=== PATIENT | male | born 1965 | race African-American/Black ===

== ENCOUNTER 2017-11-29 11:58 | Inpatient (IN) ==
[2017-11-29] MEDS ORDERED: ASPIRIN 325 MG TABLET ONE (13:15)
[2017-11-29] MEDS ORDERED: ENOXAPARIN 100 MG/ML SYRINGE SUBCUT STA (13:20)
[2017-11-29] MEDS ORDERED: MORPHINE 4 MG/1 ML VIAL IV PRN (13:20)
[2017-11-29] MEDS ORDERED: ENOXAPARIN 100 MG/ML SYRINGE SUBCUT ONE (13:20)
[2017-11-29] MEDS ORDERED: ASPIRIN 325 MG TABLET PO STA (13:20)
[2017-11-29] MEDS ORDERED: ONDANSETRON 4 MG/2 ML VIAL IV PRN ×2 (13:20→13:40)
[2017-11-29] MEDS ORDERED: fentaNYL 100 MCG/2 ML VIAL ONE (13:26)
[2017-11-29] MEDS ORDERED: LIDOCAINE 1% 20 ML VIAL ONE (13:26)
[2017-11-29] MEDS ORDERED: MIDAZOLAM 2 MG/2 ML VIAL ONE (13:26)
[2017-11-29] MEDS ORDERED: BIVALIRUDIN 250 MG VIAL IV ONE ×2 (13:38→14:22)
[2017-11-29 13:40] LABS: Basophils % 0.2 % (0.0-0.8); Eosinophils % 0.1 % (0.00-10.9); Hemoglobin 13.4 GM/DL (14.0-18.0); Immature Granulocytes % 0.6 %; Immature Granulocytes Absolute 0.12 #; Lymphocytes # 2.3 10*3/uL (1.4-4.0); Lymphocytes % 11.2 % (21.2-54.2); Mean Corpuscular HGB Conc 33.5 GM/DL (32-36); Mean Corpuscular Hemoglobin 29 PG (27-34); Mean Corpuscular Volume 85.3 FL (87-102); Mean Platelet Volume 11.1 FL (9.6-12.0); Monocytes % 5.2 % (1.7-12.7); Neutrophils # 16.6 10*3/uL (1.4-7.4); Neutrophils % 82.7 % (38.7-73.9); Platelet Count 225 T/CUMM (130-400); Red Blood Count 4.69 MC/CUMM (3.8-5.5); Red Cell Distribution Width 14.9 % (9.3-17.3); White Blood Count 20.1 T/CUMM (4-12)
[2017-11-29] MEDS ORDERED: BISACODYL 5 MG TABLET PO PRN (13:40)
[2017-11-29] MEDS ORDERED: MAGNESIUM SULF RIDER 4 GM in PREMIX 1 EACH IV PRN (13:40)
[2017-11-29] MEDS ORDERED: ZALEPLON 5 MG CAPSULE PO PRN (13:40)
[2017-11-29] MEDS ORDERED: ACETAMINOPHEN 325 MG TABLET PO PRN (13:40)
[2017-11-29] MEDS ORDERED: DOCUSATE SODIUM 100 MG CAPSULE PO PRN (13:40)
[2017-11-29] MEDS ORDERED: guaiFENesin/DM ER 600-30 MG TABLET PO PRN (13:40)
[2017-11-29] MEDS ORDERED: diphenhydrAMINE CAP 25 MG CAPSULE PO PRN (13:40)
[2017-11-29] MEDS ORDERED: GLUCAGON 1 MG VIAL IM PRN ×3 (13:44→16:12)
[2017-11-29] MEDS ORDERED: DEXTROSE 50% 25 GM/50 ML VIAL IV PRN ×3 (13:44→16:12)
[2017-11-29] MEDS: BIVALIRUDIN 250 MG in SODIUM CHLORIDE 0.9% 50 ML IV SCH ×3 (13:45→15:29)
[2017-11-29 13:47] LABS: PT Patient Result 10.2 SECS; Partial Thromboplastin Time 31.4 SECS (0-40)
[2017-11-29 13:53] LABS: Albumin 3.9 G/DL (3.4-5.0); Bilirubin,Total 0.7 MG/DL (0.2-1.0); Calcium 8.4 MG/DL (8.5-10.1); Osmolality,Calculated 284.5 MOS/KG (273-304); Potassium 3.8 MMOL/L (3.5-5.1); Total Protein 7.1 G/DL (6.4-8.3)
[2017-11-29] MEDS ORDERED: TICAGRELOR 90 MG TABLET ONE (14:03)
[2017-11-29] MEDS ORDERED: HEPARIN/NACL 0.9% 2 UNITS/ML 1,500 ML IV ONE (14:18)
[2017-11-29] MEDS ORDERED: NITROGLYCERIN SL 0.4 MG TABLET SL PRN (14:23)
[2017-11-29 14:25] LABS: Band Neutrophils 3 % (0-10); Lymphocytes 8 % (20-55); Segmented Neutrophils 83 % (50-85); Total Cells Counted 100
[2017-11-29 14:26] LABS: Platelet Estimate Normal
[2017-11-29] MEDS ORDERED: SODIUM CHLORIDE 0.9% 1,000 ML IV SCH (14:30)
[2017-11-29] MEDS ORDERED: SODIUM CHLORIDE 0.9% 500 ML IV ONE (14:55)
[2017-11-29] MEDS ORDERED: MAGNESIUM HYDROXIDE SUSP 30 ML UDCUP PO PRN (16:13)
[2017-11-29] MEDS: INSULIN LISPRO 100 UNIT/ML SUBCUT SCH ×3 (18:02→20:42)
[2017-11-29 19:48] LABS: CKMB % 11.2 %
[2017-11-29] MEDS: TICAGRELOR 90 MG TABLET PO SCH (20:41)
[2017-11-29] MEDS: POTASSIUM CHLORIDE 20 MEQ TABLET PO PRN (20:41)
[2017-11-29] MEDS ORDERED: METOPROLOL SUCCINATE XL 50 MG TABLET PO SCH (21:00)
[2017-11-29] MEDS: CARVEDILOL 12.5 MG TABLET PO SCH (21:00)
[2017-11-29] MEDS ORDERED: ROSUVASTATIN 20 MG TABLET PO SCH (21:00)
[2017-11-29] MEDS: SODIUM CHLORIDE 0.9% 1,000 ML IV SCH (23:35)
[2017-11-30 03:17] LABS: Basophils % 0.2 % (0.0-0.8); Eosinophils % 0.2 % (0.00-10.9); Hematocrit 37.2 VOL% (42.0-52.0); Hemoglobin 12.2 GM/DL (14.0-18.0); Immature Granulocytes % 0.7 %; Immature Granulocytes Absolute 0.13 #; Lymphocytes # 2.5 10*3/uL (1.4-4.0); Lymphocytes % 13.5 % (21.2-54.2); Mean Corpuscular HGB Conc 32.8 GM/DL (32-36); Mean Corpuscular Hemoglobin 29 PG (27-34); Mean Corpuscular Volume 88.4 FL (87-102); Mean Platelet Volume 11.8 FL (9.6-12.0); Monocytes # 1.6 10*3/uL (0.11-0.8); Monocytes % 8.9 % (1.7-12.7); Neutrophils % 76.5 % (38.7-73.9); Platelet Count 198 T/CUMM (130-400); Red Blood Count 4.21 MC/CUMM (3.8-5.5); Red Cell Distribution Width 15.3 % (9.3-17.3); White Blood Count 18.3 T/CUMM (4-12)
[2017-11-30 03:45] LABS: Calcium 8.2 MG/DL (8.5-10.1); Osmolality,Calculated 288.4 MOS/KG (273-304); Potassium 4.4 MMOL/L (3.5-5.1); Risk Ratio 3.42
[2017-11-30] MEDS: MAGNESIUM SULF RIDER 2 GM in PREMIX 1 EACH IV PRN (04:30)
[2017-11-30] MEDS: SODIUM CHLORIDE 0.9% 1,000 ML IV SCH ×3 (07:39→23:55)
[2017-11-30] MEDS: PANTOPRAZOLE 40 MG TABLET PO SCH (08:28)
[2017-11-30] MEDS: SERTRALINE 100 MG TABLET PO SCH (08:28)
[2017-11-30] MEDS: glipiZIDE 5 MG TABLET PO SCH (08:28)
[2017-11-30] MEDS: CARVEDILOL 12.5 MG TABLET PO SCH ×2 (08:29→21:23)
[2017-11-30] MEDS: FAMOTIDINE 20 MG TABLET PO SCH (08:29)
[2017-11-30] MEDS: INSULIN LISPRO 100 UNIT/ML SUBCUT SCH ×4 (08:29→21:00)
[2017-11-30] MEDS: ASPIRIN EC 81 MG TABLET PO SCH (08:29)
[2017-11-30] MEDS: TICAGRELOR 90 MG TABLET PO SCH ×2 (08:29→21:01)
[2017-11-30] MEDS: LISINOPRIL/HCTZ 20-25 MG TABLET PO SCH (08:29)
[2017-11-30] MEDS: ROSUVASTATIN 20 MG TABLET PO SCH (21:01)
[2017-12-01 05:54] LABS: Basophils # 0.1 10*3/uL (0.0-0.2); Basophils % 0.2 % (0.0-0.8); Eosinophils % 0.1 % (0.00-10.9); Hematocrit 32.3 VOL% (42.0-52.0); Hemoglobin 10.7 GM/DL (14.0-18.0); Immature Granulocytes % 0.9 %; Immature Granulocytes Absolute 0.18 #; Lymphocytes # 2.6 10*3/uL (1.4-4.0); Lymphocytes % 12.4 % (21.2-54.2); Mean Corpuscular HGB Conc 33.1 GM/DL (32-36); Mean Corpuscular Hemoglobin 29 PG (27-34); Mean Corpuscular Volume 87.8 FL (87-102); Mean Platelet Volume 11.6 FL (9.6-12.0); Monocytes # 1.6 10*3/uL (0.11-0.8); Monocytes % 7.4 % (1.7-12.7); Neutrophils # 16.6 10*3/uL (1.4-7.4); Platelet Count 169 T/CUMM (130-400); Red Blood Count 3.68 MC/CUMM (3.8-5.5); Red Cell Distribution Width 15.2 % (9.3-17.3)
[2017-12-01 06:20] LABS: Hypochromasia 1+; Lymphocytes 18 % (20-55); Platelet Estimate Adequate; Segmented Neutrophils 79 % (50-85); Total Cells Counted 100
[2017-12-01 06:29] LABS: Calcium 7.8 MG/DL (8.5-10.1); Osmolality,Calculated 286.5 MOS/KG (273-304); Potassium 3.7 MMOL/L (3.5-5.1)
[2017-12-01] MEDS: SODIUM CHLORIDE 0.9% 1,000 ML IV SCH (07:53)
[2017-12-01] MEDS: INSULIN LISPRO 100 UNIT/ML SUBCUT SCH ×4 (08:49→20:46)
[2017-12-01] MEDS: LISINOPRIL/HCTZ 20-25 MG TABLET PO SCH (09:16)
[2017-12-01] MEDS: SERTRALINE 100 MG TABLET PO SCH (09:17)
[2017-12-01] MEDS: FAMOTIDINE 20 MG TABLET PO SCH (09:17)
[2017-12-01] MEDS: POTASSIUM CHLORIDE 20 MEQ TABLET PO PRN (09:17)
[2017-12-01] MEDS: glipiZIDE 5 MG TABLET PO SCH (09:17)
[2017-12-01] MEDS: ASPIRIN EC 81 MG TABLET PO SCH (09:17)
[2017-12-01] MEDS: TICAGRELOR 90 MG TABLET PO SCH ×2 (09:17→20:45)
[2017-12-01] MEDS: PANTOPRAZOLE 40 MG TABLET PO SCH (09:18)
[2017-12-01] MEDS: CARVEDILOL 12.5 MG TABLET PO SCH ×2 (09:18→20:45)
[2017-12-01] MEDS: MAGNESIUM SULF RIDER 2 GM in PREMIX 1 EACH IV PRN (09:18)
[2017-12-01] MEDS: ROSUVASTATIN 20 MG TABLET PO SCH (20:45)
[2017-12-02 05:36] LABS: Basophils % 0.2 % (0.0-0.8); Eosinophils % 0.2 % (0.00-10.9); Hematocrit 29.8 VOL% (42.0-52.0); Hemoglobin 9.8 GM/DL (14.0-18.0); Immature Granulocytes % 0.5 %; Immature Granulocytes Absolute 0.08 #; Lymphocytes # 1.8 10*3/uL (1.4-4.0); Lymphocytes % 11.7 % (21.2-54.2); Mean Corpuscular HGB Conc 32.9 GM/DL (32-36); Mean Corpuscular Hemoglobin 29 PG (27-34); Mean Corpuscular Volume 87.6 FL (87-102); Mean Platelet Volume 11.6 FL (9.6-12.0); Monocytes # 1.1 10*3/uL (0.11-0.8); Monocytes % 7.1 % (1.7-12.7); Neutrophils # 12.5 10*3/uL (1.4-7.4); Neutrophils % 80.3 % (38.7-73.9); Platelet Count 159 T/CUMM (130-400); Red Cell Distribution Width 15.5 % (9.3-17.3); White Blood Count 15.6 T/CUMM (4-12)
[2017-12-02 06:13] LABS: Calcium 7.9 MG/DL (8.5-10.1); Osmolality,Calculated 287.8 MOS/KG (273-304); Potassium 3.9 MMOL/L (3.5-5.1)
[2017-12-02] MEDS: INSULIN LISPRO 100 UNIT/ML SUBCUT SCH ×4 (08:36→20:57)
[2017-12-02] MEDS: ASPIRIN EC 81 MG TABLET PO SCH (09:02)
[2017-12-02] MEDS: TICAGRELOR 90 MG TABLET PO SCH ×2 (09:02→20:57)
[2017-12-02] MEDS: FAMOTIDINE 20 MG TABLET PO SCH (09:02)
[2017-12-02] MEDS: PANTOPRAZOLE 40 MG TABLET PO SCH (09:02)
[2017-12-02] MEDS: SERTRALINE 100 MG TABLET PO SCH (09:02)
[2017-12-02] MEDS: CARVEDILOL 12.5 MG TABLET PO SCH ×2 (09:02→22:59)
[2017-12-02] MEDS: glipiZIDE 5 MG TABLET PO SCH (09:02)
[2017-12-02] MEDS: ROSUVASTATIN 20 MG TABLET PO SCH (20:57)
[2017-12-03 05:41] LABS: Osmolality,Calculated 285.7 MOS/KG (273-304); Potassium 3.6 MMOL/L (3.5-5.1)
[2017-12-03] MEDS: SERTRALINE 100 MG TABLET PO SCH (08:33)
[2017-12-03] MEDS: TICAGRELOR 90 MG TABLET PO SCH ×2 (08:33→21:34)
[2017-12-03] MEDS: FAMOTIDINE 20 MG TABLET PO SCH (08:33)
[2017-12-03] MEDS: CARVEDILOL 12.5 MG TABLET PO SCH ×2 (08:33→21:34)
[2017-12-03] MEDS: PANTOPRAZOLE 40 MG TABLET PO SCH (08:33)
[2017-12-03] MEDS: ASPIRIN EC 81 MG TABLET PO SCH (08:33)
[2017-12-03] MEDS: glipiZIDE 5 MG TABLET PO SCH (08:34)
[2017-12-03] MEDS: INSULIN LISPRO 100 UNIT/ML SUBCUT SCH ×4 (08:34→21:34)
[2017-12-03] MEDS: LISINOPRIL/HCTZ 10-12.5 MG TABLET PO SCH (12:05)
[2017-12-03] MEDS: ROSUVASTATIN 20 MG TABLET PO SCH (21:34)
[2017-12-04 04:26] LABS: Calcium 8.4 MG/DL (8.5-10.1); Osmolality,Calculated 282.7 MOS/KG (273-304); Potassium 3.8 MMOL/L (3.5-5.1)
[2017-12-04] MEDS: glipiZIDE 5 MG TABLET PO SCH (08:00)
[2017-12-04 08:24] VITALS: BP 97/62
[2017-12-04] MEDS: ASPIRIN EC 81 MG TABLET PO SCH (08:34)
[2017-12-04] MEDS: TICAGRELOR 90 MG TABLET PO SCH (08:34)
[2017-12-04] MEDS: SERTRALINE 100 MG TABLET PO SCH (08:34)
[2017-12-04] MEDS: FAMOTIDINE 20 MG TABLET PO SCH (08:35)
[2017-12-04] MEDS: PANTOPRAZOLE 40 MG TABLET PO SCH (08:35)
[2017-12-04] MEDS: INSULIN LISPRO 100 UNIT/ML SUBCUT SCH (08:39)
[2017-12-04] MEDS: LISINOPRIL/HCTZ 10-12.5 MG TABLET PO SCH (08:39)
[2017-12-04] MEDS: CARVEDILOL 12.5 MG TABLET PO SCH (09:24)
[2017-12-04] MEDS ORDERED: diphenhydrAMINE CAP 25 MG CAPSULE PO PRN (12:06)
[2017-12-04] MEDS ORDERED: BISACODYL 5 MG TABLET PO PRN (12:06)
[2017-12-04] MEDS ORDERED: ACETAMINOPHEN 325 MG TABLET PO PRN (12:06)
[2017-12-04] MEDS ORDERED: ONDANSETRON 4 MG/2 ML VIAL IV PRN (12:06)
[2017-12-04] MEDS ORDERED: ZALEPLON 5 MG CAPSULE PO PRN (12:06)
[2017-12-05] MEDS ORDERED: PANTOPRAZOLE 40 MG TABLET PO SCH (09:00)
== END 2017-12-04 11:00 | disposition home or self-care (01) | DRG 247 ==
LOC: N.ED 11:58 → N.CC 13:24 → N.EDINP 13:40 → N.CC 14:20 → N.TELES 12-01 17:10
PROVIDERS: ADMIT Internal Medicine Cardiovascular Disease; ATTEND Internal Medicine Cardiovascular Disease
PROC: CLCCHCL (ICD-10-PCS; 2017-11-29 13:45)

== ENCOUNTER 2017-12-29 14:16 | Inpatient (IN) ==
[2017-12-29 14:45] LABS: Basophils # 0.1 10*3/uL (0.0-0.2); Basophils % 0.6 % (0.0-0.8); Eosinophils # 0.4 10*3/uL (0.0-0.87); Eosinophils % 3.2 % (0.00-10.9); Hematocrit 37.5 VOL% (42.0-52.0); Hemoglobin 12.3 GM/DL (14.0-18.0); Immature Granulocytes % 0.5 %; Immature Granulocytes Absolute 0.05 #; Lymphocytes # 2.5 10*3/uL (1.4-4.0); Lymphocytes % 22.5 % (21.2-54.2); Mean Corpuscular HGB Conc 32.8 GM/DL (32-36); Mean Corpuscular Hemoglobin 28 PG (27-34); Mean Corpuscular Volume 84.5 FL (87-102); Mean Platelet Volume 11.8 FL (9.6-12.0); Monocytes # 0.6 10*3/uL (0.11-0.8); Neutrophils # 7.5 10*3/uL (1.4-7.4); Neutrophils % 68.2 % (38.7-73.9); Platelet Count 219 T/CUMM (130-400); Red Blood Count 4.44 MC/CUMM (3.8-5.5); Red Cell Distribution Width 14.6 % (9.3-17.3)
[2017-12-29] MEDS ORDERED: ASPIRIN CHEW 81 MG TABLET PO STA ×2 (14:47)
[2017-12-29 14:59] LABS: PT Patient Result 10.5 SECS; Partial Thromboplastin Time 31.5 SECS (0-40)
[2017-12-29] MEDS ORDERED: DILTIAZEM INJ 100 MG in SODIUM CHLORIDE 0.9% 100 ML IV SCH (15:00)
[2017-12-29 15:15] LABS: Troponin I 0.307 NG/ML (0.00-0.045)
[2017-12-29 15:16] LABS: Albumin 3.6 G/DL (3.4-5.0); Bilirubin,Total 0.5 MG/DL (0.2-1.0); Calcium 9.4 MG/DL (8.5-10.1); Osmolality,Calculated 284.5 MOS/KG (273-304); Potassium 3.9 MMOL/L (3.5-5.1); Total Protein 8.3 G/DL (6.4-8.3)
[2017-12-29] MEDS ORDERED: ACETAMINOPHEN 325 MG TABLET PO PRN (15:32)
[2017-12-29] MEDS ORDERED: MORPHINE 4 MG/1 ML VIAL IV PRN (15:32)
[2017-12-29] MEDS ORDERED: DOCUSATE SODIUM 100 MG CAPSULE PO PRN (15:32)
[2017-12-29] MEDS ORDERED: NICOTINE 21 MG/24 HR PATCH TRANSDERM PRN (15:32)
[2017-12-29] MEDS ORDERED: ONDANSETRON 4 MG/2 ML VIAL IV PRN (15:32)
[2017-12-29] MEDS ORDERED: ZALEPLON 5 MG CAPSULE PO PRN (15:32)
[2017-12-29] MEDS ORDERED: MAGNESIUM SULF RIDER 2 GM in PREMIX 1 EACH IV PRN (15:32)
[2017-12-29] MEDS ORDERED: MAGNESIUM SULF RIDER 4 GM in PREMIX 1 EACH IV PRN (15:32)
[2017-12-29] MEDS ORDERED: ACETAMINOPHEN 500 MG TABLET PO PRN (15:40)
[2017-12-29] MEDS ORDERED: NITROGLYCERIN SL 0.4 MG TABLET SL PRN (15:40)
[2017-12-29] MEDS: PANTOPRAZOLE 40 MG TABLET PO SCH (17:11)
[2017-12-29] MEDS ORDERED: DEXTROSE 50% 25 GM/50 ML VIAL IV PRN (18:08)
[2017-12-29] MEDS ORDERED: GLUCAGON 1 MG VIAL IM PRN (18:08)
[2017-12-29] MEDS: APIXABAN 5 MG TABLET PO SCH (20:23)
[2017-12-29] MEDS: TICAGRELOR 90 MG TABLET PO SCH (20:23)
[2017-12-29] MEDS: ROSUVASTATIN 20 MG TABLET PO SCH (20:23)
[2017-12-29] MEDS: CARVEDILOL 25 MG TABLET PO SCH (20:23)
[2017-12-29] MEDS: DILTIAZEM 30 MG TABLET PO SCH (20:24)
[2017-12-29] MEDS: INSULIN REGULAR 100 UNIT/ML SUBCUT SCH (20:34)
[2017-12-29] MEDS ORDERED: CARVEDILOL 12.5 MG TABLET PO SCH (21:00)
[2017-12-30 06:36] LABS: Basophils % 0.3 % (0.0-0.8); Eosinophils # 0.3 10*3/uL (0.0-0.87); Eosinophils % 2.7 % (0.00-10.9); Hematocrit 32.9 VOL% (42.0-52.0); Hemoglobin 10.5 GM/DL (14.0-18.0); Immature Granulocytes % 0.5 %; Immature Granulocytes Absolute 0.05 #; Lymphocytes # 2.3 10*3/uL (1.4-4.0); Lymphocytes % 24.4 % (21.2-54.2); Mean Corpuscular HGB Conc 31.9 GM/DL (32-36); Mean Corpuscular Hemoglobin 27 PG (27-34); Mean Platelet Volume 12.3 FL (9.6-12.0); Monocytes # 0.5 10*3/uL (0.11-0.8); Monocytes % 5.6 % (1.7-12.7); Neutrophils # 6.3 10*3/uL (1.4-7.4); Neutrophils % 66.5 % (38.7-73.9); Platelet Count 189 T/CUMM (130-400); Red Blood Count 3.87 MC/CUMM (3.8-5.5); Red Cell Distribution Width 14.7 % (9.3-17.3); White Blood Count 9.4 T/CUMM (4-12)
[2017-12-30 06:58] LABS: Calcium 9.1 MG/DL (8.5-10.1); Osmolality,Calculated 283.5 MOS/KG (273-304); Potassium 4.2 MMOL/L (3.5-5.1); Thyroid Stimulating Hormone 1.15 uIU/ml (0.358-3.74)
[2017-12-30] MEDS: INSULIN REGULAR 100 UNIT/ML SUBCUT SCH ×4 (08:12→21:50)
[2017-12-30] MEDS: TICAGRELOR 90 MG TABLET PO SCH ×2 (08:13→21:50)
[2017-12-30] MEDS: LORazepam 1 MG TABLET PO SCH (08:13)
[2017-12-30] MEDS: MULTIVITAMIN (CENTRUM) TABLET PO SCH (08:13)
[2017-12-30] MEDS: APIXABAN 5 MG TABLET PO SCH ×2 (08:14→21:54)
[2017-12-30] MEDS: SERTRALINE 100 MG TABLET PO SCH (08:14)
[2017-12-30] MEDS: CARVEDILOL 25 MG TABLET PO SCH (08:14)
[2017-12-30] MEDS: DILTIAZEM 30 MG TABLET PO SCH (08:14)
[2017-12-30] MEDS: PANTOPRAZOLE 40 MG TABLET PO SCH (08:14)
[2017-12-30] MEDS ORDERED: ASPIRIN EC 81 MG TABLET PO SCH (09:00)
[2017-12-30] MEDS ORDERED: LISINOPRIL/HCTZ 10-12.5 MG TABLET PO SCH (09:00)
[2017-12-30] MEDS ORDERED: SOTALOL 80 MG TABLET PO SCH (13:00)
[2017-12-30] MEDS ORDERED: SODIUM CHLORIDE 0.9% 500 ML IV ONE (13:04)
[2017-12-30] MEDS: SOTALOL 80 MG TABLET PO SCH ×2 (13:17→21:50)
[2017-12-30] MEDS: ROSUVASTATIN 20 MG TABLET PO SCH (21:49)
[2017-12-31 06:03] LABS: Basophils # 0.1 10*3/uL (0.0-0.2); Basophils % 0.6 % (0.0-0.8); Eosinophils # 0.3 10*3/uL (0.0-0.87); Hematocrit 33.7 VOL% (42.0-52.0); Hemoglobin 10.8 GM/DL (14.0-18.0); Immature Granulocytes % 0.4 %; Immature Granulocytes Absolute 0.04 #; Lymphocytes # 2.3 10*3/uL (1.4-4.0); Mean Corpuscular Hemoglobin 28 PG (27-34); Mean Corpuscular Volume 86.4 FL (87-102); Mean Platelet Volume 11.9 FL (9.6-12.0); Monocytes # 0.6 10*3/uL (0.11-0.8); Monocytes % 5.5 % (1.7-12.7); Neutrophils # 7.4 10*3/uL (1.4-7.4); Neutrophils % 69.5 % (38.7-73.9); Platelet Count 189 T/CUMM (130-400); Red Cell Distribution Width 14.7 % (9.3-17.3); White Blood Count 10.7 T/CUMM (4-12)
[2017-12-31 06:13] LABS: Calcium 9.1 MG/DL (8.5-10.1); Osmolality,Calculated 286.3 MOS/KG (273-304); Potassium 4.1 MMOL/L (3.5-5.1)
[2017-12-31] MEDS: INSULIN REGULAR 100 UNIT/ML SUBCUT SCH ×4 (08:13→20:09)
[2017-12-31] MEDS: TICAGRELOR 90 MG TABLET PO SCH ×2 (08:14→20:08)
[2017-12-31] MEDS: PANTOPRAZOLE 40 MG TABLET PO SCH (08:14)
[2017-12-31] MEDS: SOTALOL 80 MG TABLET PO SCH ×2 (08:14→20:08)
[2017-12-31] MEDS: LORazepam 1 MG TABLET PO SCH (08:14)
[2017-12-31] MEDS: APIXABAN 5 MG TABLET PO SCH ×2 (08:14→20:08)
[2017-12-31] MEDS: SERTRALINE 100 MG TABLET PO SCH (08:15)
[2017-12-31] MEDS: MULTIVITAMIN (CENTRUM) TABLET PO SCH (08:17)
[2017-12-31] MEDS: ROSUVASTATIN 20 MG TABLET PO SCH (20:08)
[2018-01-01 06:27] LABS: Basophils % 0.4 % (0.0-0.8); Eosinophils # 0.4 10*3/uL (0.0-0.87); Eosinophils % 3.4 % (0.00-10.9); Hematocrit 35.4 VOL% (42.0-52.0); Hemoglobin 11.4 GM/DL (14.0-18.0); Immature Granulocytes % 0.4 %; Immature Granulocytes Absolute 0.04 #; Lymphocytes # 2.2 10*3/uL (1.4-4.0); Lymphocytes % 19.1 % (21.2-54.2); Mean Corpuscular HGB Conc 32.2 GM/DL (32-36); Mean Corpuscular Hemoglobin 27 PG (27-34); Mean Corpuscular Volume 85.1 FL (87-102); Mean Platelet Volume 12.2 FL (9.6-12.0); Monocytes # 0.7 10*3/uL (0.11-0.8); Monocytes % 6.3 % (1.7-12.7); Neutrophils % 70.4 % (38.7-73.9); Platelet Count 191 T/CUMM (130-400); Red Blood Count 4.16 MC/CUMM (3.8-5.5); Red Cell Distribution Width 14.9 % (9.3-17.3); White Blood Count 11.4 T/CUMM (4-12)
[2018-01-01 06:41] LABS: Calcium 8.9 MG/DL (8.5-10.1); Osmolality,Calculated 282.4 MOS/KG (273-304); Potassium 4.1 MMOL/L (3.5-5.1)
[2018-01-01 07:37] VITALS: BP 106/74
[2018-01-01] MEDS: MULTIVITAMIN (CENTRUM) TABLET PO SCH (08:23)
[2018-01-01] MEDS: INSULIN REGULAR 100 UNIT/ML SUBCUT SCH (08:23)
[2018-01-01] MEDS: PANTOPRAZOLE 40 MG TABLET PO SCH (08:24)
[2018-01-01] MEDS: TICAGRELOR 90 MG TABLET PO SCH (08:24)
[2018-01-01] MEDS: SOTALOL 80 MG TABLET PO SCH (08:24)
[2018-01-01] MEDS: SERTRALINE 100 MG TABLET PO SCH (08:24)
[2018-01-01] MEDS: LORazepam 1 MG TABLET PO SCH (08:24)
[2018-01-01] MEDS ORDERED: ASPIRIN EC 81 MG TABLET PO SCH (09:00)
== END 2018-01-01 11:20 | disposition home or self-care (01) | DRG 310 ==
LOC: N.ED 14:16 → N.EDINP 15:32 → N.TELEN 16:32
PROVIDERS: ADMIT Internal Medicine Cardiovascular Disease; ATTEND Internal Medicine Cardiovascular Disease

== ENCOUNTER 2018-11-20 07:59 | Observation (INO) ==
[2018-11-20] MEDS ORDERED: ASPIRIN CHEW 81 MG TABLET PO STA (09:02)
[2018-11-20] MEDS ORDERED: ENOXAPARIN 100 MG/ML SYRINGE SUBCUT STA (09:02)
[2018-11-20] MEDS ORDERED: NITROGLYCERIN 2% OINT 1 INCH/GM PACK TOP STA (09:02)
[2018-11-20 09:06] LABS: Basophils # 0.1 10*3/uL (0.0-0.2); Basophils % 0.4 % (0.0-0.8); Eosinophils # 0.4 10*3/uL (0.0-0.87); Eosinophils % 2.4 % (0.00-10.9); Hematocrit 40.5 VOL% (42.0-52.0); Hemoglobin 12.9 GM/DL (14.0-18.0); Immature Granulocytes % 0.6 %; Lymphocytes # 1.7 10*3/uL (1.4-4.0); Lymphocytes % 10.9 % (21.2-54.2); Mean Corpuscular HGB Conc 31.9 GM/DL (32-36); Mean Corpuscular Volume 87.9 FL (87-102); Mean Platelet Volume 11.7 FL (9.6-12.0); Monocytes % 3.8 % (1.7-12.7); Neutrophils % 81.9 % (38.7-73.9); Platelet Count 178 T/CUMM (130-400); Red Blood Count 4.61 MC/CUMM (3.8-5.5); Red Cell Distribution Width 13.2 % (9.3-17.3); White Blood Count 15.7 T/CUMM (4-12)
[2018-11-20 09:14] LABS: INR 0.9; PT Patient Result 10.2 SECS
[2018-11-20 09:26] LABS: Albumin 4.2 G/DL (3.4-5.0); Bilirubin,Total 0.7 MG/DL (0.2-1.0); Calcium 8.8 MG/DL (8.5-10.1); Osmolality,Calculated 283.2 MOS/KG (273-304); Total Protein 7.6 G/DL (6.4-8.3)
[2018-11-20] MEDS ORDERED: ZALEPLON 5 MG CAPSULE PO PRN (11:50)
[2018-11-20] MEDS ORDERED: NICOTINE 21 MG/24 HR PATCH TRANSDERM PRN (11:50)
[2018-11-20] MEDS ORDERED: MAGNESIUM SULF RIDER 2 GM in PREMIX 1 EACH IV PRN (11:50)
[2018-11-20] MEDS ORDERED: POTASSIUM CHLORIDE 20 MEQ TABLET PO PRN (11:50)
[2018-11-20] MEDS ORDERED: guaiFENesin/DM ER 600-30 MG TABLET PO PRN (11:50)
[2018-11-20] MEDS ORDERED: DOCUSATE SODIUM 100 MG CAPSULE PO PRN (11:50)
[2018-11-20] MEDS ORDERED: MAGNESIUM SULF RIDER 4 GM in PREMIX 1 EACH IV PRN (11:50)
[2018-11-20] MEDS ORDERED: MORPHINE 4 MG/1 ML VIAL IV PRN (11:50)
[2018-11-20] MEDS ORDERED: LACTULOSE 20 GM/30 ML UDCUP PO PRN (11:50)
[2018-11-20] MEDS ORDERED: KETOROLAC 30 MG/1 ML VIAL IV ONE (11:53)
[2018-11-20] MEDS ORDERED: ACETAMINOPHEN 500 MG TABLET PO PRN (11:53)
[2018-11-20] MEDS ORDERED: NITROGLYCERIN SL 0.4 MG TABLET SL PRN (11:53)
[2018-11-20] MEDS ORDERED: LORazepam 1 MG TABLET PO PRN (11:53)
[2018-11-20 13:30] LABS: Troponin I < 0.015 NG/ML (0.00-0.045)
[2018-11-20] MEDS ORDERED: PNEUMOCOCCAL VACCINE (13 VALENT) 0.5 ML SYRINGE IM ONE (13:45)
[2018-11-20] MEDS: CYCLOBENZAPRINE 10 MG TABLET PO SCH ×2 (14:52→20:29)
[2018-11-20 15:41] LABS: Troponin I < 0.015 NG/ML (0.00-0.045)
[2018-11-20] MEDS: INSULIN REGULAR 100 UNIT/ML SUBCUT SCH ×2 (16:50→20:29)
[2018-11-20 18:25] LABS: Troponin I < 0.015 NG/ML (0.00-0.045)
[2018-11-20] MEDS: TICAGRELOR 90 MG TABLET PO SCH (20:29)
[2018-11-20] MEDS: SOTALOL 80 MG TABLET PO SCH (20:29)
[2018-11-20] MEDS: FAMOTIDINE 20 MG TABLET PO SCH (20:30)
[2018-11-20] MEDS ORDERED: ROSUVASTATIN 20 MG TABLET PO SCH (21:00)
[2018-11-21 04:43] LABS: Basophils # 0.1 10*3/uL (0.0-0.2); Basophils % 0.6 % (0.0-0.8); Eosinophils # 0.3 10*3/uL (0.0-0.87); Eosinophils % 3.3 % (0.00-10.9); Hematocrit 37.8 VOL% (42.0-52.0); Hemoglobin 12.3 GM/DL (14.0-18.0); Immature Granulocytes % 0.2 %; Immature Granulocytes Absolute 0.02 #; Lymphocytes # 2.6 10*3/uL (1.4-4.0); Lymphocytes % 29.7 % (21.2-54.2); Mean Corpuscular HGB Conc 32.5 GM/DL (32-36); Mean Corpuscular Volume 87.3 FL (87-102); Mean Platelet Volume 11.8 FL (9.6-12.0); Monocytes % 6.5 % (1.7-12.7); Neutrophils % 59.7 % (38.7-73.9); Platelet Count 140 T/CUMM (130-400); Red Blood Count 4.33 MC/CUMM (3.8-5.5); White Blood Count 8.7 T/CUMM (4-12)
[2018-11-21 05:22] LABS: Calcium 8.8 MG/DL (8.5-10.1); Osmolality,Calculated 293.1 MOS/KG (273-304)
[2018-11-21 08:05] VITALS: BP 120/73
[2018-11-21] MEDS: SOTALOL 80 MG TABLET PO SCH (08:39)
[2018-11-21] MEDS: INSULIN REGULAR 100 UNIT/ML SUBCUT SCH (08:39)
[2018-11-21] MEDS: TICAGRELOR 90 MG TABLET PO SCH (08:40)
[2018-11-21] MEDS: FAMOTIDINE 20 MG TABLET PO SCH (08:40)
[2018-11-21] MEDS: CYCLOBENZAPRINE 10 MG TABLET PO SCH (08:40)
[2018-11-21] MEDS ORDERED: ASPIRIN EC 81 MG TABLET PO SCH (09:00)
[2018-11-21] MEDS ORDERED: LISINOPRIL/HCTZ 10-12.5 MG TABLET PO SCH (09:00)
[2018-11-21] MEDS ORDERED: SERTRALINE 100 MG TABLET PO SCH (09:00)
== END 2018-11-21 10:32 | disposition home or self-care (01) ==
LOC: N.ED 07:59 → N.EDINP 07:59 → N.TELES 13:24
PROVIDERS: ADMIT Internal Medicine Interventional Cardiology; ATTEND Internal Medicine Interventional Cardiology